=== PATIENT | female | born 1995 | race Caucasian/White ===

== ENCOUNTER 2021-03-01 08:20 | Emergency (ER) | payer SELFPAY ==
[~2021-03-01] VITALS: Ht 154.9 cm; Wt 75.0 kg
[~2021-03-01 08:20] MED LIST: AMOXICILLIN500 MG PO
[2021-03-01] MEDS ORDERED: TAM75CAP PO (09:54)
[2021-03-01 10:14] VITALS: BP 142/87
== END 2021-03-01 10:25 | disposition home or self-care (01) | DRG 195 ==
LOC: ED 08:20
DX: J10.1 Influenza due to other identified influenza virus with other respiratory manifestations (principal); Z20.822 Contact with and (suspected) exposure to COVID-19